=== PATIENT | male | born 1985 | race American Indian/Alaskan Native ===

== ENCOUNTER 2018-01-13 09:53 | Emergency (ER) | payer MEDICAID, OTHER ==
[2018-01-13 09:58] VITALS: BP 148/86; PULSE 83; RESP 16; TEMP 98; BMI 37.3
[2018-01-13 10:21] VITALS: O2SAT 98
--- NOTE | 2018-01-13 10:56 | ED PDOC ---
HPI: Back <Raghav Ambrose III - Last Filed: 01/13/18 12:23> Additional Complaint(s): Pt seen and examined at bedside with attending. 32M PMH HTN/chronic back pain not on medication p/w complaints worsening back pain from sleeping in a "spot that was not good for my back". He denies any fevers, chills, urinary pain/burning/frequency on urination, denies bowel/bladder changes, denies numbness/tingling/weakness into either lower extremity. PMD: Unknown <Emily Reid - Last Filed: 01/13/18 12:25> Time Seen by Provider: 01/13/18 10:30 Chief Complaint (Nursing): Back Pain Past Medical History Vital Signs: Last Vital Signs Temp 98 F 01/13/18 09:56 Pulse 83 01/13/18 09:56 Resp 16 01/13/18 09:56 BP 148/86 01/13/18 09:56 Pulse Ox 98 01/13/18 11:30 <Raghav Ambrose III - Last Filed: 01/13/18 12:23> Vital Signs: Last Vital Signs Temp 36.6 C 01/13/18 09:56 Pulse 83 01/13/18 09:56 Resp 16 01/13/18 09:56 BP 148/86 01/13/18 09:56 Pulse Ox 98 01/13/18 10:18 - Medical History PMH: Bronchitis, HTN Denies: Depression - Family History Family History: States: Unknown Family Hx <Emily Reid - Last Filed: 01/13/18 12:25> - Home Medications Home Medications: Ambulatory Orders Medication Instructions Recorded Amoxicillin 500 mg PO TID #21 cap 05/01/13 Ibuprofen 800 mg PO BID #20 tab 05/01/13 Cyclobenzaprine [Cyclobenzaprine 10 mg PO Q8 PRN #9 tab 01/13/18 HCl] Naproxen [Naprosyn] 500 mg PO BID PRN #14 tablet 01/13/18 - Allergies Allergies/Adverse Reactions: Allergies Allergy/AdvReac Type Severity Reaction Status Date / Time No Known Allergies Allergy Verified 01/13/18 10:18 Supervising Attending Note - Attestation: I have personally seen and examined this patient.: Yes I have fully participated in the care of the patient.: Yes I have reviewed all pertinent clinical information: Yes - Notes: Notes:: 32yo male with low back pain, no flank pain or tenderness, no fever or urinary symptoms. Has trace blood in urine but given location of pain likely unrelated, needs UA in 2 weeks to assure clearance <Raghav Ambrose III - Last Filed: 01/13/18 12:23> Review of Systems ROS Statement: Except As Marked, All Systems Reviewed And Found Negative Musculoskeletal: Positive for: Back Pain (acute on chronic) <Emily Reid - Last Filed: 01/13/18 12:25> Physical Exam - Reviewed Vital Signs Reviewed: Yes - Physical Exam Appears: Positive for: Well, Non-toxic, No Acute Distress Head Exam: Positive for: ATRAUMATIC Skin: Positive for: Normal Color, Warm, Dry Eye Exam: Positive for: Normal appearance ENT: Positive for: Normal ENT Inspection Neck: Positive for: Supple Cardiovascular/Chest: Positive for: Regular Rate, Rhythm. Negative for: Murmur Respiratory: Positive for: Normal Breath Sounds. Negative for: Crackles, Wheezing Gastrointestinal/Abdominal: Positive for: Normal Exam, Bowel Sounds, Soft. Negative for: Tenderness Back: Positive for: Normal Inspection, Muscle Spasm. Negative for: L CVA Tenderness, R CVA Tenderness, Vertebral Tenderness Extremity: Positive for: Normal ROM, Other (straight leg test negative, strength in BLE equal and 5/5, neurovascular intact). Negative for: Pedal Edema, Calf Tenderness, Capillary Refill <Emily Reid - Last Filed: 01/13/18 12:25> - ECG O2 Sat by Pulse Oximetry: 98 <Emily Reid - Last Filed: 01/13/18 12:25> Medical Decision Making Medical Decision Making: Suspect chronic back exacerbated by sleeping conditions and temperature with mild spasm as he is homeless and exam is benign. - Urine dip - Flexeril/Tylenol - Reeval Urine dip trace blood but otherwise negative - urinalysis with microscopy UA showing RBC-2, otherwise negative for infection <Emily Reid - Last Filed: 01/13/18 12:25> Disposition <Raghav Ambrose III - Last Filed: 01/13/18 12:23> - Patient ED Disposition Is Patient to be Admitted: No Counseled Patient/Family Regarding: Diagnosis - Disposition Disposition: Routine/Home Disposition Time: 12:25 <Emily Reid - Last Filed: 01/13/18 12:25> - Clinical Impression Clinical Impression: Back pain, Hematuria - Disposition Referrals: [facility] [place] [Outside] Condition: IMPROVED Additional Instructions: Recheck urine in clinic in 2 weeks to assure blood clears. Return to ER for any new or worsening symptoms/. Prescriptions: Cyclobenzaprine [Cyclobenzaprine HCl] 10 mg PO Q8 PRN #9 tab PRN Reason: Muscle Spasm Naproxen [Naprosyn] 500 mg PO BID PRN #14 tablet PRN Reason: Pain, Moderate (4-7) Instructions: Low Back Pain (DC), Blood in the Urine (Hematuria), Adult (DC) Forms: [facility] [facility] (Al[place]ian)
[2018-01-13 12:03] LABS: SQUAMOUS EPITHIAL 1 /hpf (0-5); URINE BACTERIA RARE (<OCC); URINE BILIRUBIN NEGATIVE (NEGATIVE); URINE BLOOD SMALL (NEGATIVE); URINE CLARITY SLIGHTY-CLOUDY (Clear); URINE COLOR YELLOW (YELLOW); URINE GLUCOSE (UA) NEG (Normal); URINE LEUKOCYTE ESTERASE NEG Leu/uL (Negative); URINE PROTEIN NEGATIVE (NEGATIVE); URINE UROBILINOGEN 0.2-1.0 mg/dL (0.2-1.0)
== END 2018-01-13 12:51 | disposition home or self-care (01) ==
LOC: H.ER 09:53
DX: M54.9 Dorsalgia, unspecified (principal); R31.9 Hematuria, unspecified; G89.29 Other chronic pain; I10 Essential (primary) hypertension